=== PATIENT | male | born 1985 | race Caucasian/White ===

== ENCOUNTER → 2022-02-22 09:06 | Outpatient (CLI) | payer OTHER, SELFPAY ==
[2022-02-22 13:45] LABS: COVID19 -Nasal RAPID Negative (Negative)
== END ==
PROVIDERS: Visit Provider Family Medicine Sleep Medicine
DX: Z20.822 Contact with and (suspected) exposure to COVID-19 (principal)
CPT/HCPCS: 87635; C9803

== ENCOUNTER 2022-02-23 08:23 | Day surgery (SDC) | payer OTHER, SELFPAY ==
[2022-02-20 15:07] VITALS: BMI 33.6
[2022-02-23] VITALS (7 sets, daily range): BP systolic 118–134; BP diastolic 69–87; PULSE 68–88; RESP 15–20; TEMP 36–36.2; O2SAT 93–100; BMI 33.6
--- NOTE | 2022-02-23 | PATH_ITS ---
[facility] Accession Number: [id number] No. of containers..01 Tissue . 01 Material submitted: . tonsil - LEFT TONSIL . 01 Clinical history: . PRIOR HISTORY OF TONSILLECTOMY . 01 Diagnosis: Left Tonsil: Tonsil with benign follicular hyperplasia and patchy active inflammation / abcess. No malignancy identified. V 02/28/2022 1327 Local . 01 Electronically signed: . Liya Marshall MD, Pathologist NPI- [id number] . 01 Gross description: . Received in a container of formalin, labeled left tonsil prior history of tonsillectomy, is a 2.5 x 2.5 x 1.8 cm lunsford, congested, ovoid palatine tonsil. It is partially covered by a glistening mucosa. There are lunsford, rubbery cut surfaces. No masses or lesions are identified. Wax Blender section is submitted in cassette A1. ([id number]) /[facility] 02/25/2022 1354 Local . 01 Pathologist provided ICD-10: J03.91 . 01 CPT . 583064 Specimen Comment: A courtesy copy of this report has been sent to [phone] Performed at: 01 [facility] [address] [place] [address] [address] [facility], [place], [place] [id number] MD Kamlesh Alvarez MD Phone: [phone]
[2022-02-23] MEDS: LACTATED RINGERS 1,000 ML 42 ML IV (09:04)
--- NOTE | 2022-02-23 10:21 | PM.PREOP ---
Pre-operative Note Interval Note History & Physical reviewed/Exam performed by Physician: Yes Changes to H&P: No
--- NOTE | 2022-02-23 10:21 | PM.HP.1 ---
History of Present Illness History of Present Illness Date Patient Seen: 02/23/22 Time Patient Seen: 10:22 Chief complaint: SDC Narrative: 36-year-old male with history of reportedly tonsillectomy age 13, with left presumed peritonsillar abscess 3 years ago and then recurrent 12/2021 treated medically. Persistent significant left tonsillar tissue remains despite prior history, patient seen in clinic 01/03/2022, no interval health changes. He wishes to proceed with left secondary tonsillectomy. Patient History Medical History Peritonsillar abscess Recurrent tonsillitis Surgical History Hx of shoulder surgery (2012) Hx of tonsillectomy (1998) Family & Social History Social History: household members none Tobacco & Substance use: Smoking Status Never smoker alcohol intake current alcohol intake frequency holiday/special occasion Substance Use Type does not use Meds Home Medications and Allergies Home Medications Medication Instructions Recorded Confirmed Type No Known Home Medications 02/20/22 02/23/22 History Allergies Allergy/AdvReac Type Severity Reaction Status Date / Time No Known Drug Allergies Allergy Verified 02/23/22 08:44 Review of Systems Review of Systems Narrative: Negative except as listed in the HPI Exam Vital Signs (past 8 hours): - 02/23/22 08:46 Temperature 97.2 F L Pulse Rate 68 Respiratory Rate 16 Blood Pressure 134/87 Pulse Oximetry 98 Oxygen Delivery Method Room Air Narrative Exam Narrative: Well-developed well-nourished stocky male, heart regular rate and rhythm without murmur, lungs clear to auscultation bilaterally Assessment & Plan Assessment & Plan narrative: Assessment: Left recurrent peritonsillar abscess, left residual tonsil tissue despite prior tonsillectomy, recurrent tonsillitis Plan: Following discussion of the material risks benefits complications and alternatives, patient elected to proceed with left secondary tonsillectomy, as outpatient, possible specimen to pathology. Time Spent With Patient Critical Care time: I spent a total of [] minutes of critical care time on this patient's care today; this time is exclusive of procedural time.
--- NOTE | 2022-02-23 10:24 | PM.OP.1 ---
Operative Date/Time/Diagnoses Date of procedure: 02/23/22 Time of procedure: 11:09 Pre-op diagnosis: Left residual tonsil tissue despite prior tonsillectomy, left recurrent peritonsillar abscess, left recurrent acute tonsillitis Post-op diagnosis: same Procedure & Clinicians Procedure: Left secondary tonsillectomy Same procedure as scheduled: Yes Indications: 28-year-old male with the above diagnosis incompletely managed with medical therapy presents for the above procedure. Following discussion of the material risks benefits complications and alternatives, he elected to proceed. Surgeon: Travis Ratliff Click Yes if Unassisted: Yes Anesthesia Type: General and Local Operative Notes Findings: Intact palate, single uvula, a right tonsil surgically absent with palatal scarring, left tonsil 2+ with scarring sent to pathology. No adenoid tissue. Specimen(s): other (LEFT tonsil) Estimated Blood Loss (mL): 5 Procedure in detail: Following identification and confirmation of consent the patient was brought to the operating room suite and placed in the supine position. General endotracheal anesthesia was administered. A head wrap, shoulder roll, and mouth gag were placed and a red rubber catheter was inserted through the nostril and out the mouth to retract the soft palate. There was no adenoid tissue. The left residual tonsil was retracted medially and suction electrocautery on a setting of 30 was used to dissect the tonsil in a subcapsular plane, followed by hemostasis with the same. The tonsillar fossa was superficially infiltrated with a 1:1 mixture of 1% lidocaine 1 100,000 epinephrine and 0.25% Marcaine 1 to 411362 epinephrine. Mouth gag and rubber catheter were removed and the patient was extubated in the operating room and taken to the recovery room in stable condition without known complication. Complications: none Post-operative Condition: stable Disposition: same day surgery Plan for aftercare: Push fluids, alternate Tylenol and Advil every 3 hours for baseline pain control, oxycodone for breakthrough pain. Soft diet 2 full weeks, no heavy lifting or straining 2 weeks.
--- NOTE | 2022-02-23 10:55 | SUR.OPER ---
Supine on padded OR bed, head on gel doughnut , arms secured on padded arm boards at <90 degrees abduction, legs uncrossed, safety belt at thigh, tape over blanket over lower legs.
[2022-02-23] MEDS: LIDOCAINE 1% W/EPI 20 ML INJ (11:02)
[2022-02-23] MEDS: BUPIVACAINE 0.25% (PF) VIAL 30 ML INJ (11:03)
== END 2022-02-23 11:51 | disposition home or self-care (01) ==
PROVIDERS: Referring Provider Otolaryngology; Visit Provider Otolaryngology
PROC: (CPT 42826; principal; 2022-02-23 10:00)
DX: J03.91 Acute recurrent tonsillitis, unspecified (principal); Z90.89 Acquired absence of other organs
CPT/HCPCS: 42826; J0330; J1100; J2250; J2405; J2704; J3010

== ENCOUNTER → 2022-11-28 14:38 | Outpatient (CLI) | payer OTHER, SELFPAY ==
--- NOTE | 2022-11-29 00:32 | DI.NM.S_ITS ---
DATE OF SERVICE: 11/28/2022 PROCEDURE: Exercise treadmill stress test without imaging. ORDERING PROVIDER: Edward Mackenzie PA-C. INDICATIONS: The patient is a 37-year-old male with chest pressure, dyspnea, and palpitations. FINDINGS: 1. The patient was able to exercise for 10 minutes and 50 seconds on a standard Diaz protocol suggesting mild-moderately reduced exercise capacity ith an JACKY of +16%, achieving 11.5 METS. 2. He had a normal heart rate and blood pressure response to exercise, achieving a maximum heart rate of 167 BPM (92% of his predicted maximum). 3. He had no chest discomfort or other anginal symptoms. 4. His resting ECG shows sinus bradycardia at [address] segments. There are no significant ST-segment shifts or arrhythmias with stress. IMPRESSION: 1. Normal exercise treadmill stress test for ischemia. 2. Mild-moderately reduced exercise capacity without angina or arrhythmias. Onel Gibbs - BRYNN/wai/janie doc#: [id number]/job#: [id number] dd: 11/28/2022 17:08:00 dt: 11/29/2022 00:23:00 DICTATING /COPIES TO: Kyle Andrade MD; Edward Mackenzie M.D. COPIES MNE: PATRICIA
== END ==
PROVIDERS: Referring Provider Physician Assistant; Visit Provider Physician Assistant
DX: R07.89 Other chest pain (principal); R06.00 Dyspnea, unspecified; R00.2 Palpitations
CPT/HCPCS: 93017

== ENCOUNTER 2023-02-22 10:18 | Emergency (ER) | payer OTHER, SELFPAY ==
[2023-02-22 10:29] VITALS: BP 133/76; PULSE 63; RESP 15; TEMP 36.9; O2SAT 99
--- NOTE | 2023-02-22 11:05 | DI.US.S_ITS ---
PROCEDURE: US ABDOMEN LIMITED INDICATIONS: RUQ PAIN TECHNIQUE: Real-time scanning was performed of the abdominal and retroperitoneal organs, with image documentation. COMPARISON: None. FINDINGS: Liver: Liver is normal in size and homogeneous in echotexture. Gallbladder: Gallbladder is normal in sonographic appearance without gallstones, gallbladder wall thickening, pericholecystic fluid, or abnormal sonographic Chan's. Biliary ducts: Intrahepatic bile ducts are non-dilated. Extrahepatic bile duct caliber measures 3 mm. Normal is 6-7 mm or less in diameter, or 10 mm or less post-cholecystectomy. Pancreas: Pancreas not well visualized secondary to overlying bowel gas. Miscellaneous: No free abdominal fluid. IMPRESSION: No acute sonographic abnormalities identified in the right upper quadrant. Pancreas not well visualized secondary to overlying bowel gas Dictated by: Brian Dumont M.D. on 02/22/2023 at 11:56 Approved by: Brian Dumont M.D. on 02/22/2023 at 11:58
--- NOTE | 2023-02-22 11:05 | ED_ITS ---
HPI - Abdominal Pain <PITO Stover - Last Filed: 02/22/23 11:12> General Chief Complaint: Abdominal Pain Stated Complaint: Severe upper stomach pain Time Seen by Provider: 02/22/23 11:04 Source: patient Mode of arrival: Ambulatory History of Present Illness HPI narrative: This is a 37-year-old gentleman who presents to the emergency department complaining of epigastric pain that has come and gone over the last 2 months but has gotten worse over the last week. He states that last night all he had was some pretzels and some water and he felt very bloated afterwards,. States that he had an x-ray in the past and was told he had a hiatal hernia. He states that he has never had an endoscopy or colonoscopy. Denies any blood in his stool, denies vomiting but endorses belching, bloating, some right upper quadrant pain and tenderness on his right upper flank/rib pain. Related Data Previous Rx's Medication Instructions Recorded pantoprazole 40 mg tablet,delayed 40 mg PO DAILY #30 tabs 02/22/23 release (Protonix) Allergies Allergy/AdvReac Type Severity Reaction Status Date / Time No Known Drug Allergies Allergy Verified 02/22/23 10:29 <Mauro Gan DO - Last Filed: 02/23/23 08:55> Review of Systems Narrative: GENERAL: Denies chills, fatigue, malaise, fever, sweats. HEENT: Denies sinus pain, ear pain, sore throat, difficulty swallowing, dizziness. RESPIRATORY: Denies dyspnea, cough, wheezing, hemoptysis, sputum. CARDIOVASCULAR: Denies chest pain, palpitations, orthopnea, edema, GASTROINTESTINAL: see HPI : Denies dysuria, frequency, incontinence, hematuria, urinary retention. MUSCULOSKELETAL: denies weakness, joint pain, or bony pain SKIN: Denies rash, skin lesions, or other NEUROLOGIC: Denies weakness, headache, numbness, change in speech, confusion, seizures, incoordination. PSYCHIATRIC: No concerning psychosocial issues. 12 point review of systems is negative except for those stated above Patient History <PITO Stover - Last Filed: 02/22/23 11:12> Medical History Peritonsillar abscess Recurrent tonsillitis Surgical History Hx of shoulder surgery (2012) Hx of tonsillectomy (1998) Social History household members: none Smoking Status: Never smoker alcohol intake: current Smoking Status: Never smoker alcohol intake frequency: holidays/special occasions only Substance Use Type: does not use Exam <PITO Stover - Last Filed: 02/22/23 11:12> Initial Vital Signs Initial Vital Signs: Vital Signs Temperature 98.5 F 02/22/23 10:29 Pulse Rate 63 02/22/23 10:29 Respiratory Rate 15 02/22/23 10:29 Blood Pressure 133/76 02/22/23 10:29 Pulse Oximetry 99 02/22/23 10:29 Oxygen Delivery Method Room Air 02/22/23 10:29 <Mauro Gan DO - Last Filed: 02/23/23 08:55> Narrative Exam Narrative: GENERAL: [37] year old patient appears stated age. Well-developed patient, in mild distress. HEAD: Atraumatic. Normocephalic. EYES: Pupils equal round and reactive. Extraocular motions intact. No scleral icterus. No injection or drainage. ENT: Nose without bleeding, purulent drainage. Throat without erythema, tonsillar hypertrophy or exudate. Airway patent. NECK: Trachea midline. Non tender CARDIOVASCULAR: Regular rate and rhythm without murmurs, gallops, or rubs. RESPIRATORY: Clear to auscultation. Breath sounds equal bilaterally. No wheezes, rales, or rhonchi. GASTROINTESTINAL: Abdomen soft, non-tender, nondistended. EXTREMITIES: No edema or joint tenderness. BACK: Nontender without deformity or crepitance. No flank tenderness. NEURO: AOx3. SKIN: No rash or erythema of visible areas Initial Vital Signs Initial Vital Signs: Vital Signs Temperature 98.5 F 02/22/23 10:29 Pulse Rate 63 02/22/23 10:29 Respiratory Rate 15 02/22/23 10:29 Blood Pressure 133/76 02/22/23 10:29 Pulse Oximetry 99 02/22/23 10:29 Oxygen Delivery Method Room Air 02/22/23 10:29 Course <PITO Stover - Last Filed: 02/22/23 11:12> Orders Ordered: Discontinued Medications Pantoprazole Sodium (Pantoprazole 40 Mg Vial) 40 mg IV NOW ONE Stop: 02/22/23 11:06 Last Admin: 02/22/23 12:15 Dose: 40 mg Documented By: RLS Vital Signs Vital signs: Vital Signs - 8 hr 02/22/23 10:29 Temperature 98.5 F Pulse Rate 63 Respiratory Rate 15 Blood Pressure 133/76 Pulse Oximetry 99 Oxygen Delivery Method Room Air <Mauro Gan DO - Last Filed: 02/23/23 08:55> Orders Ordered: Discontinued Medications Pantoprazole Sodium (Pantoprazole 40 Mg Vial) 40 mg IV NOW ONE Stop: 02/22/23 11:06 Last Admin: 02/22/23 12:15 Dose: 40 mg Documented By: RLS Vital Signs Vital signs: Vital Signs - 8 hr 02/22/23 10:29 Temperature 98.5 F Pulse Rate 63 Respiratory Rate 15 Blood Pressure 133/76 Pulse Oximetry 99 Oxygen Delivery Method Room Air MDM - Abdominal Pain <PITO Stover - Last Filed: 02/22/23 11:12> Lab Data 02/22/23 11:56 02/22/23 11:56 Labs: Lab Results 02/22/23 02/22/23 Range/Units 11:56 11:56 WBC 5.4 (4.5-11.0) X10^3/uL RBC 4.93 (4.5-5.9) X10^6/uL Hgb 10.5 L (13.5-17.5) g/dL Hct 33.3 L (41-53) % MCV 67.6 L (80-100) fL MCH 21.3 L (26-34) PG MCHC 31.6 (30-36) % RDW 16.3 H (11.6-14.8) % Plt Count 281 (150-400) X10^3/uL Neut % (Auto) 47.1 L (50-75) % Lymph % (Auto) 38.3 (25-40) % [place] % (Auto) 9.3 (3-14) % Eos % (Auto) 4.1 H (2-4) % Baso % (Auto) 1.2 (0-2) % Neut # (Auto) 2500 (7085-9028) /uL Lymph # (Auto) 2100 (0644-4564) /uL [place] # (Auto) 500 (0-900) /uL Eos # (Auto) 200 (0-450) /uL Baso # (Auto) 100 (0-100) /uL Platelet Estimate N Plt Morphology Comment RBC Morphology See below Poikilocytosis 2+ H Anisocytosis 1+ H Microcytosis 2+ H Sodium 139 (137-145) mmol/L Potassium 4.1 (3.4-5.1) mmol/L Chloride 104 (98-107) mmol/L Carbon Dioxide 26 (22-32) mmol/L BUN 13 (9-20) mg/dL Creatinine 0.99 (0.66-1.25) mg/dL Estimated GFR > 60 (>60) mL/min BUN/Creatinine Ratio 13.1 (6-22) Glucose 99 (70-100) mg/dL Calcium 8.7 (8.4-10.2) mg/dL Total Bilirubin 0.4 (0.2-1.3) mg/dL AST 32 (17-59) IU/L ALT 27 (<50) IU/L Alkaline Phosphatase 47 (38-126) U/L Total Protein 7.2 (6.3-8.2) g/dL Albumin 4.3 (3.5-5.0) g/dL Globulin 2.9 (1.7-4.1) g/dL Albumin/Globulin Ratio 1.5 (1.0-2.8) Lipase 129 (23-300) U/L MDM Narrative Medical decision making narrative: Chief Complaint: Independent historian: Multiple etiologies for patient's symptoms considered including, but not limited to: Cholecystitis, cholelithiasis, gastric ulcer, hiatal hernia, GERD, pancreatitis I have independently reviewed the patient's vital signs and nursing notes as well as prior records if available. My EKG interpretation: My interpretation of lab studies: My interpretation of imaging: Course of care: Social considerations that may affect disposition: none Questions are addressed and there is agreement with the plan and for follow-up. <Mauro Gan DO - Last Filed: 02/23/23 08:55> Lab Data Labs: Lab Results 02/22/23 02/22/23 Range/Units 11:56 11:56 WBC 5.4 (4.5-11.0) X10^3/uL RBC 4.93 (4.5-5.9) X10^6/uL Hgb 10.5 L (13.5-17.5) g/dL Hct 33.3 L (41-53) % MCV 67.6 L (80-100) fL MCH 21.3 L (26-34) PG MCHC 31.6 (30-36) % RDW 16.3 H (11.6-14.8) % Plt Count 281 (150-400) X10^3/uL Neut % (Auto) 47.1 L (50-75) % Lymph % (Auto) 38.3 (25-40) % [place] % (Auto) 9.3 (3-14) % Eos % (Auto) 4.1 H (2-4) % Baso % (Auto) 1.2 (0-2) % Neut # (Auto) 2500 (9158-7349) /uL Lymph # (Auto) 2100 (5074-9298) /uL [place] # (Auto) 500 (0-900) /uL Eos # (Auto) 200 (0-450) /uL Baso # (Auto) 100 (0-100) /uL Platelet Estimate N Plt Morphology Comment RBC Morphology See below Poikilocytosis 2+ H Anisocytosis 1+ H Microcytosis 2+ H Sodium 139 (137-145) mmol/L Potassium 4.1 (3.4-5.1) mmol/L Chloride 104 (98-107) mmol/L Carbon Dioxide 26 (22-32) mmol/L BUN 13 (9-20) mg/dL Creatinine 0.99 (0.66-1.25) mg/dL Estimated GFR > 60 (>60) mL/min BUN/Creatinine Ratio 13.1 (6-22) Glucose 99 (70-100) mg/dL Calcium 8.7 (8.4-10.2) mg/dL Total Bilirubin 0.4 (0.2-1.3) mg/dL AST 32 (17-59) IU/L ALT 27 (<50) IU/L Alkaline Phosphatase 47 (38-126) U/L Total Protein 7.2 (6.3-8.2) g/dL Albumin 4.3 (3.5-5.0) g/dL Globulin 2.9 (1.7-4.1) g/dL Albumin/Globulin Ratio 1.5 (1.0-2.8) Lipase 129 (23-300) U/L MDM Narrative Medical decision making narrative: Chief Complaint: Epigastric pain, particularly with eating Independent historian: Patient Multiple etiologies for patient's symptoms considered including, but not limited to: Cholecystitis, cholelithiasis, gastric ulcer, hiatal hernia, GERD, pancreatitis I have independently reviewed the patient's vital signs and nursing notes as well as prior records if available. My interpretation of lab studies: No significant lab abnormalities requiring specific intervention. Most notably no leukocytosis, electrolyte abnormalities, elevated LFTs, bilirubin My interpretation of imaging: Abdominal ultrasound demonstrates no acute process Course of care: Patient given IV fluids and Protonix, feeling better over duration of visit. As stated history and physical exam are most concerning for diagnoses noted above. Thankfully labs and imaging would suggest against gallbladder disease, pancreatitis, liver disease. He is feeling better after stated therapies and this is suggestive of the possibility of GERD versus early ulcer. He has his pain controlled and is tolerating orals. There is no indication for further intervention, hospitalization or surgical evaluation at this time. He is given extensive return precautions including worsening pain, persistent vomiting, fever or other concerning symptoms Social considerations that may affect disposition: none Questions are addressed and there is agreement with the plan and for follow-up. Discharge Plan Departure Patient Disposition: Home Clinical Impression: Abdominal pain, epigastric Instructions: DI for Epigastric Pain Activity Restrictions/Additional Instructions: *You have been diagnosed with [ acute epigastric pain. As we discussed your history and physical exam are reassuring and labs and imaging would suggest there is no evidence of gallbladder disease, pancreatitis or other significant diagnosis that requires immediate intervention *What to do: *Please continue to take your regular medications as directed. [ x] New medication prescriptions sent to your pharmacy: [[facility]] [ ] New medication written as a paper prescription [ ] No new medications given *Please follow up with your primary care provider in 2-3 days, call for an appointment. Let them know you were seen in the Emergency Department and that we ask that you be seen in follow up. We will electronically transmit a record of today's note if your PCP is in our system *If you do not have a primary care provider please contact the [facility] Resource line at [phone]. They will ask some questions about your medical history and help get you set up with a doctor in the community. *Return to Emergency Department if you should have any new, worsening or concerning symptoms, such as [fever greater than 101 F, shaking chills, wor sening pain, persistent vomiting or other bothersome symptoms] Prescriptions: New pantoprazole [Protonix] 40 mg tablet,delayed release (DR/EC) 40 mg PO DAILY Qty: 30 0RF Referrals: Jesus San DO [Primary Care Provider] - Stand Alone Forms: Patient Portal/API
[2023-02-22 12:02] VITALS: BMI 33.4
[2023-02-22 12:09] LABS: Basophils Absolute Auto 100 /uL (0-100); Basophils Percent Auto 1.2 % (0-2); Eosinophils Absolute Auto 200 /uL (0-450); Eosinophils Percent Auto 4.1 % (2-4); Hematocrit 33.3 % (41-53); Hemoglobin 10.5 g/dL (13.5-17.5); Lymphocytes Absolute Auto 2100 /uL (1100-4500); Lymphocytes Percent Auto 38.3 % (25-40); Mean Corpuscular HGB Conc 31.6 % (30-36); Mean Corpuscular Hemoglobin 21.3 PG (26-34); Mean Corpuscular Volume 67.6 fL (80-100); Monocytes Absolute Auto 500 /uL (0-900); Monocytes Percent Auto 9.3 % (3-14); Neutrophils Absolute Auto 2500 /uL (1500-7000); Neutrophils Percent Auto 47.1 % (50-75); Platelet Count 281 X10^3/uL (150-400); Red Blood Cell Count 4.93 X10^6/uL (4.5-5.9); Red Cell Distribution Width 16.3 % (11.6-14.8); White Blood Cell Count 5.4 X10^3/uL (4.5-11.0)
[2023-02-22 12:12] LABS: Add Manual Diff / Slide Review SLIDE REVIEW
[2023-02-22] MEDS: PANTOPRAZOLE 40 MG VIAL IV (12:15)
[2023-02-22 12:18] LABS: Alanine Aminotransferase 27 IU/L (<50); Albumin 4.3 g/dL (3.5-5.0); Albumin Globulin Ratio 1.5 (1.0-2.8); Alkaline Phosphatase 47 U/L (38-126); Aspartate Aminotransferase 32 IU/L (17-59); BUN Creatinine Ratio 13.1 (6-22); Bilirubin Total 0.4 mg/dL (0.2-1.3); Blood Urea Nitrogen 13 mg/dL (9-20); Calcium 8.7 mg/dL (8.4-10.2); Carbon Dioxide 26 mmol/L (22-32); Chloride 104 mmol/L (98-107); Estimated Glomerular Filt Rate > 60 mL/min (>60); Globulin 2.9 g/dL (1.7-4.1); Glucose 99 mg/dL (70-100); HEMOLYSIS 27 (0-50); Lipase 129 U/L (23-300); Potassium 4.1 mmol/L (3.4-5.1); Sodium 139 mmol/L (137-145); Total Protein 7.2 g/dL (6.3-8.2)
[2023-02-22 13:02] LABS: Platelet Estimate N
[2023-02-22 13:03] LABS: Anisocytosis 1+; Microcytosis 2+; Poikilocytosis 2+
[2023-02-22 13:04] VITALS: BP 122/74; PULSE 62; RESP 18; O2SAT 97
== END 2023-02-22 13:08 | disposition home or self-care (01) ==
PROVIDERS: Emergency Provider Emergency Medicine; PCP Family Medicine
DX: R10.13 Epigastric pain (principal)
CPT/HCPCS: 36415; 76705; 80053; 83690; 85025; 96374; 99284; C9113